=== PATIENT | female | born 1950 | race Caucasian/White ===

== ENCOUNTER 2017-06-22 23:25 | Emergency (ER) | payer OTHER ==
[~2017-06-22] VITALS: Ht 170.2 cm; Wt 62.6 kg
[2017-06-22 23:25] VITALS: TEMP 36.7; Ht 170.2 cm; Wt 62.6 kg
[~2017-06-22 23:25] MED LIST: ACET650T82 PO; AMLO10TA2 PO; ASPEC325 PO; CITA40TA12 PO; DICY10CA55 PO; ESZO1TAB18 PO; FLUT0.15 NAE; MCRK20 PO; METO100T44 PO; MULT-506 PO; PANT20TA2 PO; SIMV20TA2 PO
[2017-06-23 00:21] LABS: BASO % 0.6 %; BASO ABS # 0.05 K/uL (0-0.2); EOS % 4.1 %; EOS ABS # 0.35 K/uL (0-0.5); HEMATOCRIT 40.6 % (37-47); HEMOGLOBIN 13.9 g/dL (12.0-16.0); IG# 0.09 K/uL (0.00-0.02); LYMPH % 29.5 %; LYMPH ABS # 2.55 K/uL (1.2-3.4); MEAN CELL VOLUME 82.7 fL (80-100); MEAN CORPUSCULAR HEMOGLOBIN 28.3 pg (25-34); MEAN CORPUSCULAR HGB CONC 34.2 g/dl (32-36); MEAN PLATELET VOLUME 9.2 fL (7.4-10.4); MONO % 6.3 %; MONO ABS # 0.54 K/uL (0.11-0.59); NEUT % 58.5 %; NEUT ABS # 5.06 K/uL (1.4-6.5); PLATELET COUNT 377 K/uL (130-400); RED CELL DISTRIBUTION WIDTH CV 14.8 % (11.5-14.5); RED CELL DISTRIBUTION WIDTH SD 44.6 fL (36.4-46.3); WHITE BLOOD COUNT 8.64 K/uL (4.8-10.8)
[2017-06-23 00:38] LABS: ALBUMIN 3.3 gm/dl (3.4-5.0); ALT/SGPT 22 U/L (12-78); AST/SGOT 16 U/L (15-37); BLOOD UREA NITROGEN 17 mg/dl (7-18); CARBON DIOXIDE 27 mmol/L (21-32); GLUCOSE 91 mg/dl (70-99); POTASSIUM 3.5 mmol/L (3.5-5.1); SODIUM 142 mmol/L (136-145)
[2017-06-23 00:41] LABS: ALKALINE PHOSPHATASE 99 U/L (45-117); TOTAL PROTEIN 7.5 gm/dl (6.4-8.2)
[2017-06-23] MEDS ORDERED: TYLER650 PO (01:40)
[2017-06-23] MEDS ORDERED: HYDR12.55 PO (01:41)
[2017-06-23] MEDS ORDERED: ATOR-22 PO (01:41)
[2017-06-23] MEDS ORDERED: GABA-1220 PO (01:41)
[2017-06-23] MEDS ORDERED: CYM/30 PO (01:41)
[2017-06-23] MEDS ORDERED: TRAZ50TA35 PO (01:41)
[2017-06-23] MEDS ORDERED: CALC500C70 PO (01:42)
[2017-06-23] MEDS ORDERED: CHOL2000 PO (01:42)
[2017-06-23] MEDS ORDERED: FSMD/70 PO (01:42)
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
[2017-06-23 03:33] VITALS: BP 140/91; PULSE 76; O2SAT 94
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
== END 2017-06-23 03:33 | disposition home or self-care (01) ==
LOC: EDBD 23:25 → C.EDB 23:26
DX: M25.512 Pain in left shoulder (principal); M25.572 Pain in left ankle and joints of left foot; T76.11XA Adult physical abuse, suspected, initial encounter; X58.XXXA Exposure to other specified factors, initial encounter; Y92.009 Unspecified place in unspecified non-institutional (private) residence as the place of occurrence of the external cause; G89.29 Other chronic pain; M79.605 Pain in left leg; I10 Essential (primary) hypertension; F17.200 Nicotine dependence, unspecified, uncomplicated; Z88.8 Allergy status to other drugs, medicaments and biological substances; Z88.6 Allergy status to analgesic agent